=== PATIENT | female | born 1995 | race Caucasian/White ===

== ENCOUNTER 2018-07-21 12:43 | Emergency (ER) | payer OTHER ==
[2018-07-21 17:20] LABS: BASO % 0.3 % (0.0-1.0); EOS # 0.1 10^3/uL (0.0-0.50); EOS % 0.9 % (0.0-3.0); HEMATOCRIT 38.9 % (36.0-47.0); HEMOGLOBIN 13.5 g/dl (12.0-15.5); IMMATURE GRANULOCYTE % 0.4 % (0-3.0); LYMPH # 3.8 10^3/uL (1.5-6.5); LYMPH % 40.4 % (24.0-44.0); MEAN CORPUSCULAR HGB CONC 34.7 g/dl (32.0-36.5); MEAN CORPUSCULAR VOLUME 92.2 fl (80.0-96.0); MONO # 0.4 10^3/uL (0.0-0.8); MONO % 4.3 % (0.0-5.0); NEUTROPHILS # 5.1 10^3/uL (1.8-7.7); NEUTROPHILS % 53.7 % (36.0-66.0); PLATELET COUNT, AUTOMATED 238 10^3/uL (150-450); RED BLOOD COUNT 4.22 10^6/uL (4.00-5.40); RED CELL DISTRIBUTION WIDTH 11.8 % (11.5-14.5); WHITE BLOOD COUNT 9.5 10^3/uL (4.0-10.0)
[2018-07-21 17:26] LABS: INR 0.98; PARTIAL THROMBOPLASTIN TIME 27.2 SECONDS (25.4-37.6); PROTHROMBIN TIME 13.1 SECONDS (12.1-14.4)
[2018-07-21 17:27] LABS: CONTROL LINE HCG INT CTR LINE PRESENT; HCG, SERUM QUALITATIVE NEGATIVE (NEGATIVE)
[2018-07-21 17:29] LABS: D-DIMER QUANT 477.3 ng/ml (<500)
[2018-07-21 17:40] LABS: ALBUMIN/GLOBULIN RATIO 1.11 (1.00-1.93); ALKALINE PHOSPHATASE 63 U/L (45-117); ALT/SGPT 26 U/L (12-78); ANION GAP 9 MEQ/L (8-16); AST/SGOT 21 U/L (7-37); BILIRUBIN,DIRECT 0.2 MG/DL (0.0-0.2); BILIRUBIN,TOTAL 0.6 MG/DL (0.2-1.0); BLOOD UREA NITROGEN 8 MG/DL (7-18); C REACTIVE PROTEIN QUANTITATIV < 0.30 MG/DL (0.00-0.30); CALCIUM LEVEL 8.8 MG/DL (8.5-10.1); CARBON DIOXIDE LEVEL 24 MEQ/L (21-32); CHLORIDE LEVEL 109 MEQ/L (98-107); CK-MB VALUE MASS < 1.0 NG/ML (<3.6); CPK CREATINE PHOSPHOKINASE 69 U/L (26-192); CREATININE FOR GFR 0.76 MG/DL (0.55-1.30); FREE T4 0.83 NG/DL (0.76-1.46); GLOMERULAR FILTRATION RATE > 60.0 (>60); GLUCOSE, FASTING 82 MG/DL (70-100); MB/CK RELATIVE INDEX 1.45 (< OR =4); POTASSIUM SERUM 4.4 MEQ/L (3.5-5.1); SODIUM LEVEL 142 MEQ/L (136-145); TOTAL PROTEIN 7.6 GM/DL (6.4-8.2); TROPONIN I < 0.02 NG/ML (< 0.10)
== END 2018-07-21 18:36 | disposition home or self-care (01) ==
LOC: M ED 12:43
DX: R07.89 Other chest pain (principal); K21.9 Gastro-esophageal reflux disease without esophagitis; F41.9 Anxiety disorder, unspecified; Z82.49 Family history of ischemic heart disease and other diseases of the circulatory system; Z79.899 Other long term (current) drug therapy; Z88.0 Allergy status to penicillin
CPT/HCPCS: 71046

== ENCOUNTER 2018-07-23 14:32 | Emergency (ER) | payer OTHER | END 2018-07-23 17:08 | disposition home or self-care (01) | LOC: M ED 14:32 | DX: F43.0 Acute stress reaction (principal); F33.9 Major depressive disorder, recurrent, unspecified | CPT/HCPCS: 99284 ==

== ENCOUNTER 2018-12-25 14:02 | Emergency (ER) | payer OTHER ==
[~2018-12-25] VITALS: Ht 167.6 cm; Wt 106.8 kg
[~2018-12-25 14:02] MED LIST: ZOLO50TA PO
[2018-12-25] MEDS ORDERED: CLEO300C2 (14:08)
[2018-12-25] MEDS ORDERED: DOXY100C (14:08)
[2018-12-25] MEDS ORDERED: ONDANSETRON 4MG/2ML VIAL (J2405) IV ONE (15:15)
[2018-12-25] MEDS ORDERED: NS 1,000 ML IV ONE (15:15)
[2018-12-25 15:52] LABS: BASO % 0.2 % (0.0-1.0); EOS # 0.1 10^3/uL (0.0-0.50); EOS % 0.7 % (0.0-3.0); HEMATOCRIT 40.1 % (36.0-47.0); HEMOGLOBIN 13.7 g/dl (12.0-15.5); LYMPH # 1.4 10^3/uL (1.5-6.5); LYMPH % 16.4 % (24.0-44.0); MEAN CORPUSCULAR HEMOGLOBIN 32.2 pg (27.0-33.0); MEAN CORPUSCULAR HGB CONC 34.2 g/dl (32.0-36.5); MEAN CORPUSCULAR VOLUME 94.4 fl (80.0-96.0); MONO # 0.4 10^3/uL (0.0-0.8); NEUTROPHILS # 6.4 10^3/uL (1.8-7.7); NEUTROPHILS % 77.3 % (36.0-66.0); PLATELET COUNT, AUTOMATED 233 10^3/uL (150-450); RED BLOOD COUNT 4.25 10^6/uL (4.00-5.40); WHITE BLOOD COUNT 8.2 10^3/uL (4.0-10.0)
[2018-12-25 16:15] LABS: ALBUMIN 4.2 GM/DL (3.2-5.2); ALT/SGPT 25 U/L (12-78); BILIRUBIN,DIRECT 0.4 MG/DL (0.0-0.2); BILIRUBIN,TOTAL 1.6 MG/DL (0.2-1.0); BLOOD UREA NITROGEN 9 MG/DL (7-18); CALCIUM LEVEL 8.9 MG/DL (8.5-10.1); CARBON DIOXIDE LEVEL 27 MEQ/L (21-32); CHLORIDE LEVEL 107 MEQ/L (98-107); CREATININE FOR GFR 0.61 MG/DL (0.55-1.30); GLOMERULAR FILTRATION RATE > 60.0 (>60); GLUCOSE, FASTING 86 MG/DL (70-100); LIPASE 84 U/L (73-393); POTASSIUM SERUM 3.8 MEQ/L (3.5-5.1); SODIUM LEVEL 140 MEQ/L (136-145); TOTAL PROTEIN 7.3 GM/DL (6.4-8.2)
[2018-12-25 16:21] LABS: HCG, SERUM QUALITATIVE NEGATIVE (NEGATIVE)
--- NOTE | 2018-12-25 17:14 | REP ---
Clinical: Diffuse abdominal pain. Technique: Axial noncontrast images from the lung bases to the pubic symphysis with coronal and sagittal re-formations. Comparison: None. Findings: Lung bases are clear. Visualized heart and pericardium normal. Liver, spleen, pancreas, bilateral adrenal glands and kidneys are normal for noncontrast evaluation. The gallbladder includes [address] evidence for acute cholecystitis. Evaluation of the enteric system demonstrates prior gastric bypass surgery. The small and large bowel is without obstruction or acute inflammatory process. Normal terminal ileum, cecum and appendix identified in the right lower quadrant. Pelvis demonstrates normal bladder and age-appropriate uterus/adnexa with IUD in satisfactory position. No pelvic fluid. No ascites. No free air. No adenopathy. Abdominal aorta without aneurysm. Musculoskeletal structures are intact. Impression: 1. Cholelithiasis. 2. No acute abdominopelvic pathology appreciated. Electronically Signed by Luis Shields MD 12/25/2018 05:05 P
[2018-12-25] MEDS ORDERED: ONDA4TAB6 PO (18:03)
[2018-12-25 18:34] VITALS: BP 140/74
== END 2018-12-25 18:47 | disposition home or self-care (01) ==
LOC: M ED 14:02
DX: K80.20 Calculus of gallbladder without cholecystitis without obstruction (principal); E86.0 Dehydration; Z88.0 Allergy status to penicillin; Z98.84 Bariatric surgery status
CPT/HCPCS: 36415; 74176; 80048; 80076; 81001; 83690; 84703; 85025; 96361; 96374; 99284; J2405

== ENCOUNTER 2019-07-08 17:15 | Emergency (ER) | payer OTHER ==
[~2019-07-08] VITALS: Ht 167.6 cm; Wt 114.8 kg
[~2019-07-08 17:15] MED LIST changes: +CLEO300C2; +DOXY100C; +ONDA4TAB6 PO
[2019-07-08] MEDS ORDERED: PRENTAB9 PO (17:22)
[2019-07-08] MEDS ORDERED: NS 1,000 ML IV ONE (17:45)
[2019-07-08] MEDS ORDERED: ONDANSETRON 4MG/2ML VIAL (J2405) IV ONE (17:45)
--- NOTE | 2019-07-08 18:04 | REP ---
Single view chest: 2018. Indication: Cough. Comparison: 07/21/2019. Findings: The lungs are clear. There is no pleural effusion or pneumothorax. Cardiac silhouette is normal. No mediastinal abnormalities are detected. Surgical clips are noted within the left upper quadrant. Impression: No acute cardiopulmonary process. Electronically Signed by Timothy Xavier DO 07/08/2019 05:56 P
[2019-07-08 18:18] LABS: BASO % 0.3 % (0.0-1.0); EOS # 0.1 10^3/uL (0.0-0.5); EOS % 0.6 % (0.0-3.0); HEMATOCRIT 37.4 % (36.0-47.0); LYMPH # 3.2 10^3/uL (1.5-5.0); MEAN CORPUSCULAR HEMOGLOBIN 32.3 pg (27.0-33.0); MEAN CORPUSCULAR HGB CONC 34.8 g/dl (32.0-36.5); MONO # 0.7 10^3/uL (0.0-0.8); MONO % 6.1 % (0.0-5.0); NEUTROPHILS # 7.5 10^3/uL (1.5-8.5); NEUTROPHILS % 64.7 % (36.0-66.0); PLATELET COUNT, AUTOMATED 251 10^3/uL (150-450); RED BLOOD COUNT 4.02 10^6/uL (4.00-5.40); WHITE BLOOD COUNT 11.6 10^3/uL (4.0-10.0)
[2019-07-08 18:37] LABS: INFLUENZA A AMPLIFICATION NEGATIVE (NEGATIVE); INFLUENZA B AMPLIFICATION NEGATIVE (NEGATIVE)
[2019-07-08] MEDS ORDERED: METOCLOPRAMIDE INJ 10MG/2ML VIAL (J2765) IV ONE (19:00)
[2019-07-08] MEDS ORDERED: REGL10TA6 PO (20:23)
[2019-07-08 20:28] VITALS: BP 136/63
== END 2019-07-08 20:29 | disposition home or self-care (01) ==
LOC: M ED 17:15
DX: O26.851 Spotting complicating pregnancy, first trimester (principal); O21.0 Mild hyperemesis gravidarum; Z3A.01 Less than 8 weeks gestation of pregnancy; R05 Cough; Z88.0 Allergy status to penicillin; O99.841 Bariatric surgery status complicating pregnancy, first trimester
CPT/HCPCS: 36415; 71045; 80047; 81001; 85025; 87086; 87502; 96374; 96375; 99284; J2405; J2765

== ENCOUNTER → 2020-02-01 | Outpatient (CLI) | payer OTHER ==
[~2020-02-01] MED LIST changes: +PRENTAB9 PO; +REGL10TA6 PO
--- NOTE | 2020-02-01 11:33 | REP ---
REASON: Maternal hypertension. There are no priors for comparison. Multiple ultrasonographic images of the gravid uterus show a single living intrauterine gestation in the cephalic presentation. Doppler interrogation of the heart shows a heart rate of 160 beats per minute. The placenta is posterolateral and not low lying. The cervix measures 4.3 cm in length and is closed. The subjective amniotic fluid volume is within normal limits. The calculated amniotic fluid index is 16.0 with an expected range of 7.5 to 24.5. Doppler interrogation of the umbilical artery shows an A/B ration of 2.71. This is slightly above the upper limits of normal, which is 2.64 at this stage of . biophysical profile score is 2 for breathing, 2 for movement, 2 for tone, and 2 for amniotic fluid volume giving a some total of 8 out of 8. BPD 9.0 cm = 36 weeks 4 days HC 33.2 cm = 37 weeks 6 days AC 34.7 cm = 38 weeks 4 days FL 7.7 cm = 390 weeks 1 day The estimated weight is 3470 grams which is at the 79th percentile for a 31-itmz-4-day gestational age. The fetus was too large for a anatomical screen. IMPRESSION: Single living intrauterine gestation as described above with an estimated gestational age of 38 weeks 0 days via composite criteria and an estimated date of delivery of 02/15/2020 by today's exam. Electronically Signed by Jorge Hastings DO 02/01/2020 12:50 P
== END ==
LOC: M RAD 09:13
PROVIDERS: ATTEND Obstetrics & Gynecology
DX: O13.3 Gestational [pregnancy-induced] hypertension without significant proteinuria, third trimester (principal); Z3A.36 36 weeks gestation of pregnancy

== ENCOUNTER 2020-02-10 07:08 | Inpatient (IN) | payer OTHER ==
[~2020-02-10] VITALS: Ht 167.6 cm; Wt 122.7 kg
[2020-02-10] MEDS ORDERED: miSOPROStol 50 MCG 1/2 TAB (S0191) PO ONE (09:15)
[2020-02-10 10:49] LABS: BASO % 0.2 % (0.0-1.0); EOS # 0.1 10^3/uL (0.0-0.5); EOS % 0.7 % (0.0-3.0); HEMATOCRIT 33.2 % (36.0-47.0); HEMOGLOBIN 11.3 g/dl (12.0-15.5); LYMPH # 2.9 10^3/uL (1.5-5.0); LYMPH % 23.5 % (24.0-44.0); MEAN CORPUSCULAR VOLUME 91.2 fl (80.0-96.0); MONO # 0.6 10^3/uL (0.0-0.8); MONO % 4.8 % (0.0-5.0); NEUTROPHILS # 8.7 10^3/uL (1.5-8.5); NEUTROPHILS % 70.2 % (36.0-66.0); PLATELET COUNT, AUTOMATED 231 10^3/uL (150-450); RED BLOOD COUNT 3.64 10^6/uL (4.00-5.40); WHITE BLOOD COUNT 12.4 10^3/uL (4.0-10.0)
[2020-02-10 11:12] LABS: TOTAL PROTEIN,RANDOM URINE 20.1 MG/DL (0.0-12.0)
[2020-02-10 11:30] LABS: ALT/SGPT 17 U/L (12-78); BILIRUBIN,TOTAL 0.5 MG/DL (0.2-1.0); CREATININE FOR GFR 0.54 MG/DL (0.55-1.30); GLOMERULAR FILTRATION RATE > 60.0 (>60); LDH LACTATE DEHYDROGENASE 181 U/L (84-246); URIC ACID 5.3 MG/DL (2.6-6.0)
[2020-02-10 12:05] LABS: HIV 1&2 SCREEN CENTAUR NEGATIVE (NEGATIVE)
--- NOTE | 2020-02-10 17:28 | IPNPDOC ---
Text Note Date of Service The patient was seen on 02/10/20. NOTE assumes care from MAJ Marshall CNM. patient is a 24 y/o G1 @ 38+1wks admitted for IOL or GHTN. induction started with cytotec and mcclelland bulb placed this afternoon. patient feeling mild cramping. vitals :normal NAD, sitting in bed fht: 125/mod karen/pos accel/no decel toco: irregular ctx a/p patient not in labor. wait for mcclelland bulb to come out. start pit or arom as appropriate. Le, DO VS,Daniellee, I+O VS, Fishbone, I+O Laboratory Tests 02/10/20 10:29 KRISTA WHITTINGTON DO February 10, 2020 17:28
[2020-02-10 19:19] VITALS: BP 131/64
[2020-02-10 21:03] VITALS: BP 143/68
[2020-02-11] VITALS (32 sets, daily range): BP systolic 81–189; BP diastolic 43–101
[2020-02-11] MEDS ORDERED: BUTORPHANOL 2 MG/ML INJ (J0595) IV PRN (09:15)
[2020-02-11] MEDS ORDERED: PROMETHAZINE INJ 25 MG/ML VIAL (J2550) IV ONE ×2 (09:15→18:00)
[2020-02-11] MEDS: OXYTOCIN DRIP 30 UNITS in IV 1 EA IV SCH (09:17)
[2020-02-11] MEDS: LR 1,000 ML IV SCH ×2 (09:17→16:38)
[2020-02-11] MEDS ORDERED: BUTORPHANOL 2 MG/ML INJ (J0595) IV ONE (18:00)
--- NOTE | 2020-02-11 18:01 | IPNPDOC ---
Text Note Date of Service The patient was seen on 02/11/20. NOTE patient mcclelland bulb came out around 1200. She is currently on pit 10mU/min. Having painful contractions and is copping. Desires IV pain medication. vitals: normal fht: 140/mod karen/pos accel/no decel. toco: ctx q 3mins. a/p patient in latent labor. okay for IV meds. recheck patient once she wakes up from IV pain medication. DO Jessie VS,Ruiz, I+O VS, Daniellee, I+O Vital Signs Date Time Temp Pulse Resp B/P (MAP) Pulse Ox O2 Delivery O2 Flow Rate FiO2 02/11/20 16:40 77 18 130/72 (91) 02/11/20 14:07 97.2 02/10/20 19:19 98 Room Air KRISTA WHITTINGTON DO February 11, 2020 18:01
[2020-02-11] MEDS ORDERED: FENTANYL 2MCG/ML ROPIVACAINE 0.2% IN 0.9% NACL 100ML IVBAG As Ordered ONE (22:29)
[2020-02-11] MEDS: FENTANYL/ROPIVACAINE/NACL BAG 100 ML EPIDURAL SCH (23:40)
[2020-02-11] MEDS ORDERED: ePHEDrine SULFATE 25 MG/5 ML(5MG/ML) SYRINGE As Ordered ONE (23:52)
[2020-02-11] MEDS: LACTATED RINGER'S 1000 ML IV PRN (23:55)
[2020-02-11] MEDS: ePHEDrine SULFATE 25 MG/5 ML(5MG/ML) SYRINGE IV PRN (23:55)
[2020-02-12] VITALS (52 sets, daily range): BP systolic 88–140; BP diastolic 44–65
[2020-02-12] MEDS ORDERED: diphenhydrAMINE 50MG/ML VIAL (J1200) IV PRN (00:30)
[2020-02-12] MEDS ORDERED: NALOXONE INJ 0.4MG/1ML VIAL (J2310 PER 1MG) IV PRN (00:30)
[2020-02-12] MEDS ORDERED: EPIDURAL COMMENT XX SCH (00:30)
[2020-02-12] MEDS ORDERED: ONDANSETRON 4MG/2ML VIAL IV PRN (00:30)
[2020-02-12] MEDS ORDERED: REFRIGERATOR IV KEYS XX PRN (00:30)
[2020-02-12] MEDS ORDERED: EPIDURAL/PCA KEYS XX PRN (00:30)
[2020-02-12] MEDS: LR 1,000 ML IV SCH ×4 (00:48→15:50)
[2020-02-12] MEDS: FENTANYL/ROPIVACAINE/NACL BAG 100 ML EPIDURAL SCH ×2 (08:07→16:21)
[2020-02-12] MEDS: OXYTOCIN DRIP 30 UNITS in IV 1 EA IV SCH (10:28)
[2020-02-12] MEDS: LACTATED RINGER'S 1000 ML IV PRN (10:28)
[2020-02-12] MEDS: ePHEDrine SULFATE 25 MG/5 ML(5MG/ML) SYRINGE IV PRN ×2 (10:32→10:38)
--- NOTE | 2020-02-12 20:58 | IPNPDOC ---
Text Note Date of Service The patient was seen on 02/12/20. NOTE Patient having more pressure. VS WNL ABD NT, gravid SVE: 8/100/0 FHT: Category1, 130s, reactive, no decels, ctx q1-2min A/P: Fetus reassuring. Labor progression adequate. Continue pitocin. PPH precautions for prolonged pitocin. VS,Fishbone, I+O VS, Fishbone, I+O Vital Signs Date Time Temp Pulse Resp B/P (MAP) Pulse Ox O2 Delivery O2 Flow Rate FiO2 02/12/20 18:53 110 18 140/62 (88) 02/12/20 18:24 98.9 02/11/20 18:13 Room Air 02/10/20 19:19 98 I&O- Last 24 Hours up to 6 AM 02/12/20 05:59 Intake Total 2083.9 ml Balance 2083.9 ml Lyn Fontaine MD February 12, 2020 20:53
[2020-02-13] VITALS (7 sets, daily range): BP systolic 118–138; BP diastolic 56–69
--- NOTE | 2020-02-13 01:03 | IPNPDOC ---
Text Note Date of Service The patient was seen on 02/13/20. NOTE Delivery note Called to room for imminent delivery while Dr Fontaine attending delivery in another room. Presenting part was , being supported by RN. Viable female child delivered without difficulty, NAVNEET @ 0045. Spontaneous respirations with stimulation, transitioned on maternal abdomen. Cord doubly clamped and cut by FOB under my direction once pulsations ceased. Apgars 9/9. Placenta mark, intact with 3v cord 0052. Fundus firmed with massage and premixed IV pitocin bolus. Dr Fontaine arrived in room as preparations were made for perineal repair. Please see her note for remainder of procedure. Infant wt 7#7, 3360gm. VS,Fishbone, I+O VS, Fishbone, I+O Vital Signs Date Time Temp Pulse Resp B/P (MAP) Pulse Ox O2 Delivery O2 Flow Rate FiO2 02/12/20 21:09 98.3 02/12/20 20:54 87 112/60 (77) 02/12/20 18:53 18 02/11/20 18:13 Room Air 02/10/20 19:19 98 I&O- Last 24 Hours up to 6 AM 02/13/20 06:00 Intake Total 5636.6 ml Output Total 2450 ml Balance 3186.6 ml Coby Davis CNM February 13, 2020 01:03
[2020-02-13] MEDS ORDERED: OXYTOCIN 30 UNITS IN 0.9% NaCl 500ML IV BAG (J2590) As Ordered ONE (01:09)
[2020-02-13] MEDS ORDERED: OXYTOCIN DRIP 30 UNITS in IV 1 EA IV SCH (01:56)
[2020-02-13] MEDS ORDERED: METHYLERGONOVINE MALEATE 0.2 MG TAB PO PRN (02:00)
[2020-02-13] MEDS ORDERED: CALCIUM CARBONATE 500 MG CHEW U/D PO PRN (02:00)
[2020-02-13] MEDS ORDERED: SIMETHICONE 80 MG CHEW TAB PO PRN (02:00)
[2020-02-13] MEDS ORDERED: RHOGAM 300 MCG (1500 IU) INJ (J2790) IM SCH (02:00)
[2020-02-13] MEDS ORDERED: LIDOCAINE 1% MDV 20ML VIAL INFIL ONE (02:00)
[2020-02-13] MEDS ORDERED: MOM 30ML SUSPENSION UDC PO PRN (02:00)
[2020-02-13] MEDS ORDERED: miSOPROStol 200 MCG TAB (S0191) PR ONE (02:00)
[2020-02-13] MEDS ORDERED: IBUPROFEN 800 MG TAB PO PRN (02:00)
[2020-02-13] MEDS ORDERED: diphenhydrAMINE 25MG CAP PO PRN (02:00)
[2020-02-13] MEDS ORDERED: MEASLES,MUMPS,RUBELLA VACCINE INJ (MMR-II) (90707) SC SCH (02:00)
--- NOTE | 2020-02-13 02:05 | DNPDOC ---
[facility] Delivery Note Delivery Note DATE OF DELIVERY: 02/13/2020 PREDELIVERY DIAGNOSIS: 38-3/7 weeks' gestation and labor. POST DELIVERY DIAGNOSIS: Delivered. PROCEDURE: Spontaneous vaginal delivery. PRESSURE TANK OPERATOR: Dr. Fontaine ANESTHESIA: Epidural. ESTIMATED BLOOD LOSS: 300 mL. FINDINGS: 7 pound 7 ounce 3360gm girl infant, Score 9/9, nuchal cord times 0. DELIVERY SUMMARY: Patient is a 24-year-old 1 now para 1 who was admitted to labor and delivery for IOL for GHTN with active labor for 8hours. Patient AROM clear around 0753. Please see [facility] Aura's Note for Delivery. I partook in the following: Perineum and vagina was inspected and found to have a 2nd degree laceration. This was repaired with 1% lidocaine 10cc with 2-0 chromic. The placenta was then delivered at 0052 spontaneously intact. Cord had a 3 vessel cord. EBL was 300mL. The vagina and perineum were reinspected and no further lacerations were found and hemostasis was good. Fundus was firm. Cytotec 1000mcg placed ID due to long pitocin induction. Patient tolerated delivery well. Lyn Fontaine MD February 13, 2020 02:05
[2020-02-13] MEDS: FENTANYL/ROPIVACAINE/NACL BAG 100 ML EPIDURAL SCH (06:30)
[2020-02-13] MEDS: DIBUCAINE 1% OINTMENT 30GM TOP PRN (09:05)
[2020-02-13] MEDS: DOCUSATE SODIUM 100 MG CAP PO SCH ×2 (09:05→21:18)
[2020-02-13] MEDS: PRENATAL VITAMINS CHEWABLE TABLET PO SCH (09:05)
[2020-02-13] MEDS: ACETAMINOPHEN 500 MG TAB PO PRN (21:18)
[2020-02-14 06:43] VITALS: BP 126/76
--- NOTE | 2020-02-14 08:17 | IPNPDOC ---
Progress Note Date of Service: February 14, 2020 Day#: 1 Progress Note SUBJECT: Kia is a 24yo G1 now P1001 s/p uncomplicated at 38+3wks gestat ion on [id number] at 0045. She delivered a viable female infant, 7lbs 7oz (3360g). A 2nd degree perineal laceration repaired. She has been ambulating, voiding spontaneously without issue and tolerating regular diet. Breast feeding without issue. Reports lochia is light. She is very adamant about her desire to be discharged home today because she has a 3 day induction and reports that she has been without sleep for 2 days. We discussed she is only Day 1 PP, and although she is stable, her infant will not be discharged home today. OBJECTIVE: VITAL SIGNS: Within normal limits, afebrile. Alert and oriented times three. Observed nonlabored breathing Abdomen: Fundus firm at U. Normal lochia. ASSESSMENT: PP Day #1, normal involution, stable and progressing well. exclusively. Anxiety about discharge. PLAN: 1. Routine PP care; consider moving patient rooms. 2. Tylenol and Motrin for pain. 3. Encourage breast feeding and ambulation. 4. Discharge to home tomorrow on PP Day #2 5. Routine PP visit in 6 weeks in clinic; desires IUD at that time. VS, I&O, 24H, Fishbone Vital Signs/I&O Vital Signs Date Time Temp Pulse Resp B/P (MAP) Pulse Ox O2 Delivery O2 Flow Rate FiO2 02/14/20 06:43 98.0 63 14 126/76 (93) 02/13/20 18:00 96 Room Air ANTONIA SHARMA CNM February 14, 2020 07:59
[2020-02-14] MEDS: DOCUSATE SODIUM 100 MG CAP PO SCH ×2 (09:25→20:37)
[2020-02-14] MEDS: PRENATAL VITAMINS CHEWABLE TABLET PO SCH (09:25)
[2020-02-14 18:00] VITALS: BP 144/77
[2020-02-14] MEDS: DIBUCAINE 1% OINTMENT 30GM TOP PRN (18:10)
[2020-02-15 06:42] VITALS: BP 136/61
[2020-02-15] MEDS: PRENATAL VITAMINS CHEWABLE TABLET PO SCH (09:22)
[2020-02-15] MEDS: DOCUSATE SODIUM 100 MG CAP PO SCH (09:22)
[2020-02-15] MEDS: ACETAMINOPHEN 500 MG TAB PO PRN (09:23)
--- NOTE | 2020-02-15 09:58 | IPNPDOC ---
Progress Note Date of Service: February 15, 2020 Day#: 2 Progress Note PPD 2 SUBJECT: Kia is a 24yo [id number] s/p uncomplicated on 02/12 after undergoing IOL for GHTN, with 2ml vaginal laceration and repair, doing well day # 2. She has been ambulating, voiding spontaneously without issue and tolerating regular diet. Breast feeding with formula supplementation without issue. Reports lochia is like a normal period. Appetite good. No n/v/f/c/CP/SOB. Very much desires discharge. Baby is under bili light this morning. OBJECTIVE: VITAL SIGNS: Within normal limits (rare mild range bp), afebrile. Alert and oriented times three. Abdomen: Fundus firm at U-2. Soft, NTTP. Extremities: trace edema ble ASSESSMENT: Kia is a 24yo [id number] s/p uncomplicated on 02/12 after undergoing IOL for GHTN, with 2ml vaginal laceration and repair, doing well day # 2. Vitals within normal limits (rare mild range bp), afebrile, hemodynamically stable with no evidence of infection. PLAN: 1. Discharge to home today. 2. Tylenol and Motrin for pain. 3. Encourage breast feeding and ambulation. 4. Vaginal rest and no heavy lifting 6 weeks 5. Routine PP visit in 6 weeks in clinic. 6. Discussed return precautions at length. Discussed PP depression precautions specifically, patient has hx of suicide attempts as a teenager and PTSD. Dr. Fanta Patricia MD VS, I&O, 24H, Fishbone Vital Signs/I&O Vital Signs Date Time Temp Pulse Resp B/P (MAP) Pulse Ox O2 Delivery O2 Flow Rate FiO2 02/15/20 06:42 99.1 63 16 136/61 (86) 02/14/20 18:00 100 Room Air Fanta Patricia MD February 15, 2020 09:58
[2020-02-15] MEDS ORDERED: ACET-683 PO (10:00)
[2020-02-15] MEDS ORDERED: IBUP80TA PO (10:00)
--- NOTE | 2020-02-15 10:03 | DS.PDOC ---
Discharge Summary General Date of Admission February 10, 2020 at 07:10 Date of Discharge February 15, 2020 Discharge Summary PROCEDURES PERFORMED DURING STAY: spontaneous vaginal delivery ADMITTING DIAGNOSES: 1. Term IUP, IOL GHTN DISCHARGE DIAGNOSES: 1. Term IUP, IOL GHTN COMPLICATIONS/CHIEF COMPLAINT: Induction. HISTORY OF PRESENT ILLNESS/HOSPITAL COURSE: Kia is a 24yo [id number] s/p uncomplicated on 02/12 after undergoing IOL for GHTN, with 2ml vaginal laceration and repair, doing well day # 2. Vitals within normal limits (rare mild range bp), afebrile, hemodynamically stable with no evidence of infection. DISCHARGE MEDICATIONS: Please see below. ALLERGIES: Please see below. PHYSICAL EXAMINATION ON DISCHARGE: VITAL SIGNS: Within normal limits (rare mild range bp), afebrile. Alert and oriented times three. Abdomen: Fundus firm at U-2. Soft, NTTP. Extremities: trace edema ble LABORATORY DATA: Please see below. DIET: regular DISPOSITION: home DISCHARGE PLAN/INSTRUCTIONS: 1. Discharge to home today. 2. Tylenol and Motrin for pain. 3. Encourage breast feeding and ambulation. 4. Vaginal rest and no heavy lifting 6 weeks 5. Routine PP visit in 6 weeks in clinic. 6. Discussed return precautions at length. Discussed PP depression precautions specifically, patient has hx of suicide attempts as a teenager and PTSD. DISCHARGE CONDITION: Stable TIME SPENT ON DISCHARGE: Greater than [address] Fanta Patricia MD Vital Signs/I&Os Vital Signs Date Time Temp Pulse Resp B/P (MAP) Pulse Ox O2 Delivery O2 Flow Rate FiO2 02/15/20 06:42 99.1 63 16 136/61 (86) 02/14/20 18:00 100 Room Air Discharge Medications Scheduled No.137/Iron/Folic Acd ( Vitamin Tablet) 1 Each Tablet, 1 TAB PO DAILY, (Reported) Scheduled PRN Acetaminophen (Acetaminophen) 500 Mg Tablet, 1,000 MG PO Q6HP PRN for pain or fever or headache Ibuprofen (Ibuprofen) 800 Mg Tablet, 800 MG PO Q8HP PRN for PAIN LEVEL 6-10 Metoclopramide HCl (Reglan) 10 Mg Tablet, 10 MG PO Q6H PRN for NAUSEA Allergies Coded Allergies: Penicillins (Verified Allergy, Unknown, 12/25/18) Fanta Patricia MD February 15, 2020 10:03
[2020-02-15] MEDS ORDERED: DOCU100C16 PO (12:20)
[2020-02-15] MEDS ORDERED: DIBU10OI TOP (12:20)
== END 2020-02-15 13:35 | disposition home or self-care (01) | DRG 807 ==
LOC: M LDO 07:08 → M LDI 07:10 → M OBS 02-13 02:43
PROVIDERS: ADMIT Advanced Practice Midwife; ATTEND Obstetrics & Gynecology
PROC: 3E0P7GC Introduction of Other Therapeutic Substance into Female Reproductive, Via Natural or Artificial Opening (ICD-10-PCS; 2020-02-10)
PROC: 10907ZC Drainage of Amniotic Fluid, Therapeutic from Products of Conception, Via Natural or Artificial Opening (ICD-10-PCS; 2020-02-12)
PROC: 10E0XZZ Delivery of Products of Conception, External Approach (ICD-10-PCS; principal; 2020-02-13)
PROC: 0KQM0ZZ Repair Perineum Muscle, Open Approach (ICD-10-PCS; 2020-02-13)
DX: O13.4 Gestational [pregnancy-induced] hypertension without significant proteinuria, complicating childbirth (principal); Z37.0 Single live birth; Z3A.38 38 weeks gestation of pregnancy; O99.214 Obesity complicating childbirth; E66.9 Obesity, unspecified; O99.02 Anemia complicating childbirth; D64.9 Anemia, unspecified; O99.844 Bariatric surgery status complicating childbirth; O70.1 Second degree perineal laceration during delivery